=== PATIENT | male | born 1955 | race Caucasian/White ===

== ENCOUNTER 2017-05-15 21:44 | Inpatient (IN) | payer OTHER ==
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
[2017-05-15] MEDS ORDERED: NS 1,000 ML IV ONE (22:12)
--- NOTE | 2017-05-15 22:29 | CPEKG ---
Heart Rate: 97 RR Interval: 619 P-R Interval: 184 QRSD Interval: 80 QT Interval: 324 QTC Interval: 412 P Aurora: 41 QRS Aurora: -88 T Wave Aurora: 37 EKG Severity - ABNORMAL ECG - EKG Impression: SINUS RHYTHM EKG Impression: PROBABLE LEFT ATRIAL ABNORMALITY EKG Impression: LEFT ANTERIOR FASCICULAR BLOCK Electronically Signed By: Kayden Lim 16-May-2017 07:12:37
[2017-05-15 22:43] LABS: PLATELET COUNT 152 10^3/uL (150-400)
[2017-05-15 22:55] LABS: CREATINE KINASE 47 IU/L (0-224)
[2017-05-15] MEDS ORDERED: ONDANSETRON 4 MG/2 ML VIAL IVP ONE (22:56)
[2017-05-15] MEDS ORDERED: IOPAMIDOL (ISOVUE 370) 100 ML BTL IV ONE (23:47)
[2017-05-16] MEDS ORDERED: HEPARIN/DEXTROSE 500 ML IV ONE (00:29)
[2017-05-16] MEDS ORDERED: HEPARIN 10,000 UNIT/10 ML MDV (1,000 UNIT/ML) IVP ONE (00:29)
[2017-05-16] MEDS ORDERED: ONDANSETRON 4 MG/2 ML VIAL IVP PRN (00:44)
[2017-05-16] MEDS ORDERED: ONDANSETRON DISINTEGRATING 4 MG TAB PO PRN (00:44)
[2017-05-16 00:57] LABS: INR 1.09 (0.83-1.16); PROTIME(PATIENT) 14.3 SEC (12.0-15.0)
[2017-05-16] MEDS ORDERED: HEPARIN/DEXTROSE 500 ML IV SCH (01:15)
[2017-05-16] MEDS ORDERED: HEPARIN 10,000 UNIT/10 ML MDV (1,000 UNIT/ML) IVP PRN (01:15)
--- NOTE | 2017-05-16 01:20 | PDGENHP ---
History and Physical - Chief Complaint Chest pain - History of Present Illness 61 yo M w/ no PMHx presents with chest pain. Patient has had 2 weeks of flu- like symptoms including fatigue, muscle aches, and subjective fevers. Then today he developed L-sided chest wall pain, worse when flat. He denies shortness of breath. In the ED evaluation revealed bilateral pulmonary emboli. He has been hemodynamically stable with minimal O2 needs. He denies any personal or family history of blood clots. He also denies recent surgery, trauma , or immobilization. History Information - Allergies/Home Medication List Allergies/Adverse Reactions: No Known Allergies Allergy (Unverified 05/15/17 21:51) Home Medications: NK [No Known Home Meds] 05/15/17 [Last Taken Unknown] I have personally reviewed and updated: family history, medical history - Past Medical History no pertinent PMH - Surgical History Reports: no pertinent surgical hx - Family History Additional family history: Denies family hx of blood clots - Social History Smoking Status: Never smoked Review of Systems Review of Systems: ROS: 10pt was reviewed & negative except for what was stated in HPI & below Physical Exam Physical Exam: Temp Pulse Resp BP Pulse Ox 37.7 C 80 16 114/77 95 05/15/17 21:45 05/16/17 00:46 05/16/17 00:46 05/16/17 00:46 05/16/17 00:46 Constitutional: no apparent distress, not in pain Eyes: PERRL, EOMI Ears, Nose, Mouth, Throat: moist mucous membranes, no oral mucosal ulcers Cardiovascular: regular rate and rhythym, no murmur, rub, or gallop Respiratory: no respiratory distress, clear to auscultation Gastrointestinal: normoactive bowel sounds, soft, non-tender abdomen Skin: warm, normal color Musculoskeletal: full muscle strength, no muscle tenderness Neurologic: AAOx3, CN II-XII Intact Psychiatric: interacting appropriately, not anxious Lab Data & Imaging Review 05/15/17 22:30 05/15/17 22:30 WBC 9.64 10^3/uL (3.80-9.50) H 05/15/17 22:30 RBC 5.03 10^6/uL (4.40-6.38) 05/15/17 22:30 Hgb 16.0 g/dL (13.7-17.5) 05/15/17 22: Hct 45.1 % (40.0-51.0) 05/15/17: MCV 89.7 fL (81.5-99.8) 05/15/17 22: MCH 31.8 pg (27.9-34.1) 05/15/17: MCHC 35.5 g/dL (32.4-36.7) 05/15/17: RDW 12.6 % (11.5-15.2) 05/15/17: Plt Count 152 10^3/uL (150-400) 05/15/17: MPV 9.3 fL (8.7-11.7) 05/15/17: Neut % (Auto) 70.5 % (39.3-74.2) 05/15/17: Lymph % (Auto) 15.5 % (15.0-45.0) 05/15/17: Tripp % (Auto) 12.6 % (4.5-13.0) 05/15/17: Eos % (Auto) 0.7 % (0.6-7.6) 05/15/17: Baso % (Auto) 0.4 % (0.3-1.7) 05/15/17: Nucleat RBC Rel Count 0.0 % (0.0-0.2) 05/15/17: Absolute Neuts (auto) 6.80 10^3/uL (1.70-6.50) H 05/15/17 22: Absolute Lymphs (auto) 1.49 10^3/uL (1.00-3.00) 05/15/17: Absolute Monos (auto) 1.21 10^3/uL (0.30-0.80) H 05/15/17: Absolute Eos (auto) 0.07 10^3/uL (0.03-0.40) 05/15/17: Absolute Basos (auto) 0.04 10^3/uL (0.02-0.10) 05/15/17: Absolute Nucleated RBC 0.00 10^3/uL (0-0.01) 05/15/17 22:30 Immature Gran % 0.3 % (0.0-1.1) 05/15/17 22:30 Immature Gran # 0.03 10^3/uL (0.00-0.10) 05/15/17 22:30 PT 14.3 SEC (12.0-15.0) 05/16/17 00:00 INR 1.09 (0.83-1.16) 05/16/17 00:00 APTT 29.2 SEC (23.0-38.0) 05/16/17 00:00 D-Dimer REJ 05/15/17 22:30 Sodium 137 mEq/L (135-145) 05/15/17 22:30 Potassium 4.0 mEq/L (3.5-5.2) 05/15/17 22:30 Chloride 103 mEq/L (97-110) 05/15/17 22:30 Carbon Dioxide 25 mEq/l (22-31) 05/15/17 22:30 Anion Gap 9 mEq/L (8-16) 05/15/17 22:30 BUN 15 mg/dL (7-23) 05/15/17 22:30 Creatinine 0.9 mg/dL (0.7-1.3) 05/15/17 22:30 Estimated GFR > 60 05/15/17 22:30 Glucose 112 mg/dL (70-100) H 05/15/17 22:30 Calcium 8.7 mg/dL (8.5-10.4) 05/15/17 22:30 Magnesium 1.9 mg/dL (1.6-2.3) 05/15/17 22:30 Total Bilirubin 0.8 mg/dL (0.1-1.4) 05/15/17 22:30 Conjugated Bilirubin 0.2 mg/dL (0.0-0.5) 05/15/17 22:30 Unconjugated Bilirubin 0.6 mg/dL (0.0-1.1) 05/15/17 22:30 AST 15 IU/L (17-59) L 05/15/17 22:30 ALT 28 IU/L (21-72) 05/15/17 22:30 Alkaline Phosphatase 51 IU/L (38-126) 05/15/17 22:30 Creatine Kinase 47 IU/L (0-224) 05/15/17 22:30 CK-MB (CK-2) Fraction 0.63 ng/mL (0.00-3.19) 05/15/17 22:30 Troponin I < 0.012 ng/mL (0.000-0.034) 05/15/17 22:30 NT-Pro-B Natriuret Pep 86 pg/mL (0-125) 05/15/17 22:30 Total Protein 6.8 g/dL (6.3-8.2) 05/15/17 22:30 Albumin 4.1 g/dL (3.5-5.0) 05/15/17 22:30 Lipase 88 IU/L (23-300) 05/15/17 22:30 Nasal Influenza A PCR NEGATIVE FOR FLU A (NEGATIVE) 05/15/17 22:30 Nasal Influenza B PCR NEGATIVE FOR FLU B (NEGATIVE) 05/15/17 22:30 Imaging Review: Imaging Impressions Chest X-Ray 05/15/17 22:12 Impression: 1. Hypoventilatory chest with basilar atelectasis with no visible acute findings. 2. Additional findings as above. Chest/Thorax CTA 05/15/17 23:45 Impression: 1. Pulmonary emboli, including emboli involving the distal left main pulmonary artery, with possible right-sided heart strain. 2. Indistinct pulmonary opacities that could be related to atelectasis or infarct, with a tiny left effusion. 3. Moderate hiatal hernia. 4. Mild dilatation of the ascending aorta without dissection. 5. Additional findings as above. Findings discussed with Kayden Lim MD 05/16/2017 at 0:12. Visualized and Interpreted EKG results: Yes EKG Interpretation: Positive for: other (?S1Q3T3 pattern/R heart strain) Assessment & Plan Assessment: 61 yo M w/ no significant PMHx presents with unprovoked pulmonary emboli. Plan: 1. Acute, sub-massive, bilateral pulmonary emboli - Seemingly unprovoked as patient denies surgery, trauma, or immobilization. He has no personal or family history of blood clots. Hemodynamically stable currently with minimal O2 needs; troponin and BNP WNL. ECG with possible S1Q3T3 pattern suggestive of R heart strain. PESI score of 93 denoting intermediate risk. - Admit for observation - Heparin gtt started in ED, will continue - Rivaroxaban 15 mg BID ordered to start in the AM - Monitor on telemetry, trend cardiac enzymes noting extensive clot burden - Recommend age appropriate cancer screening as outpatient - Consider hematology consult at discharge Diet - Regular Code - Full Ppx - Heparin gtt; rivaroxaban Dispo - Admit under observation status
[2017-05-16] MEDS: oxyCODONE IR 5 MG TAB PO PRN ×6 (02:09→22:55)
[2017-05-16 04:15] LABS: PLATELET COUNT 142 10^3/uL (150-400)
[2017-05-16] MEDS: RIVAROXABAN 15 MG TAB PO SCH ×2 (08:53→16:45)
[2017-05-16] MEDS: ACETAMINOPHEN 325 MG TAB PO PRN ×2 (10:25→20:06)
--- NOTE | 2017-05-16 12:42 | ASMTCASEMG ---
Living Arrangements What is your living Answers: With Spouse arrangement? Who do you live with? Type Of Residence What kind of residence do Answers: House you live in? Discharge Plan Comments Coordination Status Comments Notes: Pts case discussed in morning rounds. Pt is a 61 y/o man admitted for bilateral PE and chest pain. Pt will most likely d/c independent when medically stable. No therapies ordered at this time. CM available for changes. Plan: Independent Date Signed: 05/16/2017 12:41 PM Electronically Signed By:ART Zavala
--- NOTE | 2017-05-16 17:30 | HOSPPROG ---
Hospitalist Progress Note Assessment/Plan: DIAGNOSES: -acute large volume pulmonary emboli with minimal hypoxemia, initially mild tachycardia but overall stable vital signs -no particular symptoms of DVT but has not been assessed for DVT at this time -by history and examination and radiologic studies no specific identified triggering illness or event for this episode of clot, no past history, no family history of thromboembolic disease -tolerating anticoagulant well so far At this point I think it would be useful to know if he has significant clot in his legs as his pulmonary clot burden is so significant, any further embolization of clot could potentially be quite problematic. If his legs are free of significant clot I would feel reasonably good about potentially sending him home tomorrow, but if there is a significant clot burden in the legs might consider potentially observing longer. I am unaware of specific data examining the ideal criteria for discharge to home with new oral anticoagulants or comparing that to older medications. PLANS: -continue current oral anticoagulant -continue pain management, will add some prednisone to see if that helps at all -I had a long discussion with the patient about the potential etiologies, complications, and treatment of thromboembolic disease along with the risks of medication and precautions that he will need to take while on medication -he has had routine age appropriate cancer screening with his primary care physician in December 2016 a strongly recommended he continue doing that SUBJECTIVE: Still with ongoing pleuritic chest pain, unchanged from last night Not particularly short of breath No leg pain or swelling No fever symptoms No bleeding symptoms OBJECTIVE Vitals reviewed: No longer tachycardic, pulse in the 60s, otherwise stable vitals without fever Register Clerk, my review: All sinus Exam: alert oriented skin warm dry color ok resps not labored lungs clear BSs heart regular abd soft nondistended nontender, bowel sounds present limbs warm, no edema iv site ok Repeat chemistry and troponin are negative Objective: Vital Signs Temp Pulse Resp BP Pulse Ox 36.7 C 66 12 142/86 H 93 05/16/17 15:30 05/16/17 15:30 05/16/17 15:30 05/16/17 15:30 05/16/17 15:30 Laboratory Results 05/16/17 03:29 05/16/17 03:29 05/15/17 05/16/17 05/17/17 06:59 06:59 06:59 Intake Total 1592 Balance 1592 PT 14.3 SEC (12.0-15.0) 05/16/17 00:00 INR 1.09 (0.83-1.16) 05/16/17 00:00 ICD10 Worksheet Patient Problems: Problems Problem Status Onset Pulmonary emboli Acute
[2017-05-16] MEDS: predniSONE 20 MG TAB PO SCH (18:34)
[2017-05-17] MEDS: predniSONE 20 MG TAB PO SCH (08:48)
[2017-05-17] MEDS: RIVAROXABAN 15 MG TAB PO SCH ×2 (08:48→18:35)
[2017-05-17] MEDS ORDERED: HYDROmorphONE/DILAUDID 1 MG/ML INJ IVP PRN (10:18)
[2017-05-17] MEDS ORDERED: HYDROmorphone HCL/NS 0.5 MG/ML SYR IVP PRN (10:23)
[2017-05-17] MEDS ORDERED: KETOROLAC 30 MG/1 ML SDV IVP PRN (10:28)
--- NOTE | 2017-05-17 10:28 | HOSPPROG ---
Hospitalist Progress Note Assessment/Plan: * Large volume PE -Xarelto -outpatient hypercoag work-up -minimal residual DVT * Worsening hypoxemia -? clot propagation vs. splinting due to severe pleuritic CP -recheck CXR -check ECHO eval for severity of RH strain -improve pain control High risk due to worsening hypoxemia - will continue to watch - change to inpatient Subjective: Still with severe left sided pleuritic chest pain, severe Objective: Vital Signs Temp Pulse Resp BP Pulse Ox 37.2 C 82 18 141/90 H 99 05/17/17 07:19 05/17/17 07:19 05/17/17 07:19 05/17/17 07:19 05/17/17 07:19 Laboratory Results 05/16/17 03:29 05/16/17 03:29 05/16/17 05/17/17 05/18/17 05:59 05:59 05:59 Intake Total 1300 292 Balance 1300 292 PT 14.3 SEC (12.0-15.0) 05/16/17 00:00 INR 1.09 (0.83-1.16) 05/16/17 00:00 EKG viewed, my personal interpretation is - NSR, no ischemic change LE US - non-occlusive thrombus - Physical Exam Constitutional: no apparent distress, appears nourished, not in pain Cardiovascular: regular rate and rhythym, no murmur, rub, or gallop Respiratory: no respiratory distress, no rales or rhonchi, clear to auscultation Gastrointestinal: normoactive bowel sounds, soft, non-tender abdomen, no palpable masses Skin: no rashes or abrasions, no fluctuance, no induration Neurologic: AAOx3, sensation intact bilaterally Psychiatric: interacting appropriately, not anxious, not encephalopathic, thought process linear ICD10 Worksheet Patient Problems: Problems Problem Status Onset Pulmonary emboli Acute
[2017-05-17] MEDS: ACETAMINOPHEN 325 MG TAB PO PRN (10:51)
[2017-05-17] MEDS: oxyCODONE IR 5 MG TAB PO PRN (10:52)
--- NOTE | 2017-05-17 12:41 | PDMN ---
Medical Necessity Medical necessity: Patient meets inpatient criteria per physician note and [facility] [place] (worsening hypoxemia/ O2 sat to 62% on 3 LPM O2 with RR to 34 during the night; anticipated LOS > 2 midnights for worsening hypoxemia with large volume PE and ongoing supplemental O2 needs, assessment of severity of R heart strain via echo.)
--- NOTE | 2017-05-17 15:35 | ECHO ---
[email or web address] [address] [address] Main: [phone] Fax: [email or web address] Echocardiogram Name: CYNTHIA TROTTER MR#: [id number] Study Date: 05/17/2017 Study Time: 10:58 AM Date of : 1955 Age: 61 year(s) Height: 188 cm (74 in.) Weight: 83.92 kg (185 lb.) BSA: 2.1 m2 Gender: Male Examination: Echo Indication: Large PE Image Quality: Contrast: Requested by: Josselin Spann BP: 141 mmHg/90 mmHg Heart Rate: Rhythm: Indication: Large PE Procedure Staff Director Of Analytics: Sharee Saab ROSENDO Reading Physician: Yamil Alves MD Requesting Provider: Conclusions: Mild concentric LV hypertrophy. Normal global systolic LV function. The ejection fraction is estimated to be 70-75 %. Trivial mitral valve regurgitation. Cannot rule out bicuspid aortic valve. Trivial aortic valve regurgitation. Mildly dilated aortic root measuring 4.7 cm. Mildly dilated ascending aorta measuring 4.8 cm. Measurements: Chambers Valvular Assessment AV/MV Valvular Assessment TV/PV Normal Normal Normal Name Value Range Name Value Range Name Value Range Ao Stacey (2D): 4.7 cm (1.4 cm-2.6 AV meanP mmHg ( - ) TR Vmax: 3.38 mm/s ( - ) cm) MV E Vmax: 0.82 m/s ( - ) TR PGmax: 46 mmHg ( - ) IVSd (2D): 1.0 cm (0.6 cm-1.1 MV A Vmax: 0.69 m/s ( - ) syst. PAP: 51 mmHg ( - ) cm) MV E/A: 1.19 ( - ) LVDd (2D): 4.6 cm (4.2 cm-5.9 cm) LVDs (2D): 2.4 cm (2.1 cm-4 cm) LVPWd (2D): 1.0 cm (0.6 cm-1 cm) LVEF (2D): 80 (>=54 %) EF Range: 70-75 % Continued Measurements: Chambers Valvular Assessment AV/MV Valvular Assessment TV/PV Name Value Name Value Name Value Patient: CYNTHIA TROTTER Study Date: 05/17/2017 Page 1 of 2 10:58 AM LADs: 4.0 cm MV E/E' Septal: 10.10 CVP (est.): 5 mmHg LADs Lon.8 cm MV E/E' Lateral: 10.40 LA Area: 14.9 cm2 Additional Vessels Name Value Ao Ascendin.8 cm Findings: Left Ventricle: Normal size left ventricle. Mild concentric LV hypertrophy. Normal global systolic LV function. The ejection fraction is estimated to be 70-75 %. No regional wall motion abnormality. Right Ventricle: Normal size right ventricle. There is a moderator band noted in the right ventricle. Left Atrium: The left atrium is normal in size. Right Atrium: The right atrium is normal in size. Mitral Valve: The mitral valve is normal in appearance and function. Trivial mitral valve regurgitation. Aortic Valve: Cannot rule out bicuspid aortic valve. Trivial aortic valve regurgitation. Tricuspid Valve: The tricuspid valve is normal in appearance and function. Mild tricuspid regurgitation is present. The pulmonary artery pressure is mildly increased. RVSP is 51mmHG.. Pulmonic Valve: The pulmonic valve is normal in appearance and function. Aorta: The aorta is normal. Mildly dilated aortic root measuring 4.7 cm. Mildly dilated ascending aorta measuring 4.8 cm. Pericardium: No pericardial effusion. (No Signature Object) Patient: CYNTHIA TROTTER Study Date: 05/17/2017 Page 2 of 2 10:58 AM [id number]
[2017-05-18 04:18] LABS: PLATELET COUNT 165 10^3/uL (150-400)
[2017-05-18] MEDS: RIVAROXABAN 15 MG TAB PO SCH ×2 (08:59→16:58)
--- NOTE | 2017-05-18 12:58 | ASMTCMCOM ---
CM Note CM Note Notes: Pts case discussed in tx rounds this AM. The plan remains the same. Pt will d/c independent when medically stable. No therapies ordered at this time. CM available for changes. Plan: Independent Date Signed: 05/18/2017 12:57 PM Electronically Signed By:ART Zavala
[2017-05-18] MEDS: DULoxetine 20 MG CAP PO SCH (13:04)
[2017-05-18] MEDS: lamoTRIgine 100 MG TAB PO SCH (13:04)
[2017-05-18] MEDS: ACETAMINOPHEN 325 MG TAB PO PRN (16:56)
--- NOTE | 2017-05-18 17:39 | HOSPPROG ---
Hospitalist Progress Note Assessment/Plan: * Large volume PE -Xarelto -outpatient hypercoag work-up -minimal residual DVT * Acute respiratory failure -O2 sats worsen every time pleritic CP recurs -continue to wean O2 * Right heart strain - moderate -continue to monitor on tele * Pleuritic CP -no evidence for effusion -NSAID prn Subjective: SOB with activity, a little better every. Return of CP today, O2 sats immediately worsened. Spontaneous resoluion. Objective: Vital Signs Temp Pulse Resp BP Pulse Ox 37.3 C 95 18 156/107 H 73 L 05/18/17 16:00 05/18/17 16:00 05/18/17 16:00 05/18/17 16:00 05/18/17 16:00 Laboratory Results 05/18/17 03:19 05/18/17 03:19 05/17/17 05/18/17 05/19/17 05:59 05:59 05:59 Intake Total 1220 1120 Balance 1220 1120 PT 14.3 SEC (12.0-15.0) 05/16/17 00:00 INR 1.09 (0.83-1.16) 05/16/17 00:00 CXR viewed, my personal interpretation is - minimal effusion ECHO - moderate RV strain tele - NSR - Physical Exam Constitutional: no apparent distress, appears nourished, not in pain Cardiovascular: regular rate and rhythym, no murmur, rub, or gallop Respiratory: no respiratory distress, no rales or rhonchi, clear to auscultation Gastrointestinal: normoactive bowel sounds, soft, non-tender abdomen, no palpable masses Skin: no rashes or abrasions, no fluctuance, no induration Neurologic: AAOx3, sensation intact bilaterally Psychiatric: interacting appropriately, not anxious, not encephalopathic, thought process linear ICD10 Worksheet Patient Problems: Problems Problem Status Onset Pulmonary emboli Acute
[2017-05-19] MEDS: DULoxetine 20 MG CAP PO SCH (07:52)
[2017-05-19] MEDS: RIVAROXABAN 15 MG TAB PO SCH (07:52)
[2017-05-19] MEDS: lamoTRIgine 100 MG TAB PO SCH (07:53)
--- NOTE | 2017-05-19 12:06 | PDHOMEO2F ---
Home Oxygen Face to Face Home Orders: I certify that a physician or a nurse practitioner or physician's operational assistant has had a [id number] encounter with this patient on the date of this order due to the diagnosis listed, which relates to the primary reason the patient requires home oxygen. Alternative treatments have been tried, or considered, and deemed ineffective. It is anticipated that supplemental oxygen will result in improvement with treatment. Home oxygen qualifying diagnosis: Hypoxia, pulmonary embolus, right heart failure SpO2 on room air (%): 84 Frequency of home oxygen needed: continuous Home oxygen liters per minute: 3 Home oxygen delivery device: nasal cannula Concentrator: Yes E-tanks for mobility and back up: Yes If ordering portable O2, is the patient mobile in the home?: Yes I certify that, based on these findings, the home oxygen is medically necessary for this patient for the following length of time. Length of time home oxygen needed: 1 month
[2017-05-19 12:24] VITALS: BP 166/96
--- NOTE | 2017-05-19 14:10 | GDS ---
[f rep st] DISCHARGE SUMMARY DISCHARGE DIAGNOSES: 1. Large acute pulmonary embolus. 2. Right heart strain. 3. Acute respiratory failure. HISTORY: The patient is a 61-year-old male who presented with a large volume pulmonary embolus. He had significant left-sided pleuritic chest pain. He had a significant oxygen requirement. He was in itially started on IV heparin and then transitioned to Xarelto for discharge. Given the large nature of his pulmonary embolus and his persistent significant hypoxemia, he remained in the hospital for m ultiple days until we felt assured that he was very stable. Lower extremity ultrasounds show minimal residual DVT. His pleuritic chest pain has resolved. He should have a hypercoagulable workup as an outpatient with Hematology. He will discharge with Xarelto 15 mg p.o. b.i.d. for a total of 21 days and then can transition to 20 mg p.o. once a day. He still has an oxygen requirement at discharge, and home O2 is arranged. Echocardiogram shows some mild to moderate right heart strain, but nothing critical. DISCHARGE MEDICATIONS: Please see computerized record for full detailed list. New medications: Xar elto 15 mg p.o. b.i.d. for 21 days and then change dose to 20 mg p.o. daily. ADDITIONAL DISCHARGE INSTRUCTIONS: 1. Home oxygen 3 L. Patient plans on buying a home pulse oximeter to monitor oxygen levels himself. 2. Outpatient hematology consultation for hypercoagulable workup. 3. Ibuprofen 600 mg 4 times a day as needed for recurrence of chest pain. Can be purchased OTC. 4. If you have worsening chest pain, shortness breath, dizziness or feeling like you are going to pa ss out, please return to the emergency room. 5. Greater than 30 minutes' time was spent arranging this discharge. Patient seen and examined by me on the day of discharge. /[id number]/MODL
--- NOTE | 2017-05-19 15:22 | ASDISCHSUM ---
Discharge Information Plan Status:Home with No Needs Medically Cleared to Leave: Discharge Date:05/19/2017 02:29 PM CM D/C Disposition:Home, Routine, Self-Care ADT D/C Disposition:Home, Routine, Self-Care Projected Discharge Date:05/19/2017 02:29 PM Transportation at D/C: Discharge Delay Reason: Follow-Up Date:05/19/2017 02:29 PM Discharge Slot: Final Diagnosis: Placement Information Patient Contact Information Contact Name:SELINA Relationship: Address:[address] City:[place] Alternate Phone: State/Zip Code:[place] [address] Email: Financial Information Financial Class:HMO and PPO Plans Primary Plan Desc:[employer] Primary Plan Number:[id number] Secondary Plan Desc: Secondary Plan Number: Assessment Information [facility] Initial CM Assessment Living Arrangements What is your living Answers: With Spouse arrangement? Who do you live with? Type Of Residence What kind of residence do Answers: House you live in? Discharge Plan Comments Coordination Status Comments Notes: Pts case discussed in morning rounds. Pt is a 61 y/o man admitted for bilateral PE and chest pain. Pt will most likely d/c independent when medically stable. No therapies ordered at this time. CM available for changes. Plan: Independent Date Signed: 05/16/2017 12:41 PM Electronically Signed By:ART Zavala [facility] CM Progress Note CM Note CM Note Notes: Pts case discussed in tx rounds this AM. The plan remains the same. Pt will d/c independent when medically stable. No therapies ordered at this time. CM available for changes. Plan: Independent Date Signed: 05/18/2017 12:57 PM Electronically Signed By:ART Zavala [facility] CM Progress Note CM Note CM Note Notes: Today Pt. d/c'ed independently with new O2 that was set up by RT. Date Signed: 05/19/2017 03:20 PM Electronically Signed By:Riya Jones LCSW Intervention Information
== END 2017-05-19 14:29 | disposition home or self-care (01) | DRG 175 ==
LOC: F2W 05-16 01:26 → OBSVTOIN 05-17 10:18
PROVIDERS: ADMIT Student in an Organized Health Care Education/Training Program; ATTEND Internal Medicine
DX: I26.99 Other pulmonary embolism without acute cor pulmonale (principal); J96.00 Acute respiratory failure, unspecified whether with hypoxia or hypercapnia; I51.9 Heart disease, unspecified
CPT/HCPCS: 85520-90; 96374; J1644; J1885; J2270; J2405; J7512; Q9967

== ENCOUNTER 2017-06-19 13:04 | Emergency (ER) | payer OTHER ==
[2017-06-19 13:11] VITALS: BP 146/92
--- NOTE | 2017-06-19 15:23 | EDPHY ---
H & P Stated Complaint: L lower leg pain swelling, no trauma, recent PE and plane travel Time Seen by Provider: 06/19/17 14:41 HPI/ROS: CHIEF COMPLAINT: Left knee swelling HISTORY OF PRESENT ILLNESS: 61-year-old male presents with left knee swelling. 1 month ago he was diagnosed with pulmonary embolism and was placed on Xarelto. Yesterday he had a prolonged travel, including airplane travel and car travel. He developed swelling of the left knee yesterday evening, increasing today. The swelling is moderate and non painful. No calf swelling or pain. He saw his primary care physician who sent him to the emergency department for evaluation. REVIEW OF SYSTEMS: complete 10 point ROS negative except at noted in the HPI - Personal History Current Tetanus/Diphtheria Vaccine: No Current Tetanus Diphtheria and Acellular Pertussis (TDAP): No - Medical/Surgical History Hx Asthma: No Hx Chronic Respiratory Disease: No Hx Diabetes: No Hx Cardiac Disease: No Hx Renal Disease: No Hx Cirrhosis: No Hx Alcoholism: No Hx HIV/AIDS: No Hx Splenectomy or Spleen Trauma: No Other PMH: ROTATOR CUFF SURGERY,. VERICOUS VEIN SURGERY. PE - Social History Smoking Status: Never smoked - Physical Exam Exam: General Appearance: Alert, pleasant Eyes: Pupils equal and round, no conjunctival pallor ENT, Mouth: Mucous membranes moist Neck: Normal inspection Respiratory: Lungs are clear to auscultation Cardiovascular: Regular rate and rhythm Gastrointestinal: Abdomen is soft and nontender Neurological: A&O, nonfocal, normal gait Skin: Warm and dry, no rash Extremities: Left knee-moderate joint effusion, not tense, no overlying erythema or tenderness; no calf swelling or tenderness Psychiatric: Mood and affect normal Constitutional: Initial Vital Signs Temperature (C) 36.5 C 06/19/17 13:08 Respiratory Rate 16 06/19/17 13:08 Blood Pressure 146/92 H 06/19/17 13:08 O2 Sat (%) 99 06/19/17 13:08 O2 Delivery Mode Room Air Allergies/Adverse Reactions: No Known Allergies Allergy (Unverified 05/15/17 21:51) Home Medications: Medication Instructions Recorded Sildenafil Citrate [Revatio 20 MG 60 mg PO DAILY PRN 05/16/17 (*)] DULoxetine [Cymbalta] 20 mg PO DAILY 05/18/17 lamoTRIgine [LamICTAL 100 MG (*)] 50 mg PO DAILY 05/18/17 Rivaroxaban [Xarelto 15mg (*)] 15 mg PO BIDMEAL #40 tab 05/19/17 Rivaroxaban [Xarelto] 20 mg PO DAILY #30 tab 05/19/17 Medical Decision Making - Diagnostics Imaging Results: Imaging Impressions Extremity Venous Study 06/19/17 13:16 Impression: 1. No deep venous thrombosis left leg. 2. Left Norman's cyst. 3. Left medial knee second fluid collection, possibly ruptured Norman's cyst or hematoma versus abscess etc. Findings and recommendations discussed with Emergency Department physician, ANGELES NEELY at 14:42 hour, 06/19/2017. Final report concurs with initial preliminary interpretation. ED Course/Re-evaluation: This patient presents with a nontraumatic left knee effusion. Most likely secondary to arthritis versus hemarthrosis. No indication for arthrocentesis today, as there is no overlying erythema or tenderness. He will followup with Ortho. Differential Diagnosis: Includes though is not limited to hemarthrosis, joint infection, gout, DVT Departure - Departure Disposition: Home, Routine, Self-Care Clinical Impression: Knee effusion, left Condition: Good Instructions: Bakers Cyst (ED) Additional Instructions: Apply ice for 30 minutes at a time; 2-3 times per day for the next 1-2 days. Follow up with Orthopedics. Referrals: Cee Oneil MD [Primary Care Provider] - As per Instructions Spencer Smith MD [Medical Doctor] - As per Instructions (Call to make an appointment.)
== END 2017-06-19 15:21 | disposition home or self-care (01) ==
DX: M25.462 Effusion, left knee (principal); Z79.01 Long term (current) use of anticoagulants

== ENCOUNTER 2018-08-04 19:49 | Emergency (ER) | payer OTHER | END 2018-08-04 21:18 | disposition home or self-care (01) ==